=== PATIENT | female | born 1975 | race Hispanic/Latino ===

== ENCOUNTER 2018-01-30 07:35 | Day surgery (SDC) | payer OTHER ==
[2018-01-30] MEDS ORDERED: ECOTRIN PO ONE (08:10)
[2018-01-30] MEDS ORDERED: NACL 0.9% 500 ML 500 ML ONE (08:11)
[2018-01-30 08:36] LABS: Basophils # (Auto) 0.1 K/mm3 (0.0-0.1); Basophils % (Auto) 1.1 % (0.0-1.8); Eosinophils # (Auto) 0.3 K/mm3 (0.0-0.4); Eosinophils % (Auto) 3.3 % (0.0-4.3); Hematocrit 35.2 % (30.3-42.9); Hemoglobin 11.9 gm/dl (10.1-14.3); Mean Corpuscular HGB Conc 34 % (30-34); Mean Corpuscular Hemoglobin 30 pg (28-32); Mean Corpuscular Volume 88 fl (79-97); Monocytes # (Auto) 0.4 K/mm3 (0.0-0.8); Monocytes % (Auto) 5.7 % (0.0-7.3); Platelet Count 201 K/mm3 (140-440); Red Cell Distribution Width 14.5 % (13.2-15.2)
[2018-01-30 08:47] LABS: INR 0.91 (0.87-1.13)
[2018-01-30] MEDS ORDERED: NACL 0.9% 500 ML 500 ML IV SCH (09:00)
[2018-01-30 09:10] LABS: BUN/Creatinine Ratio 27; Blood Urea Nitrogen 19 mg/dL (7-17); Calcium 8.8 mg/dL (8.4-10.2); Hemolysis Index 24
[2018-01-30] MEDS ORDERED: ECOTRIN PO NR (09:30)
[2018-01-30] MEDS ORDERED: HEPARIN/NS 5000 UNIT/500ML(CATH LAB) 1,000 ML IR ONE (11:07)
[2018-01-30] MEDS ORDERED: NITROGLYCERIN SYRINGE 0 ML ONE (11:08)
[2018-01-30] MEDS ORDERED: CALAN ONE (11:08)
[2018-01-30] MEDS ORDERED: HEPARIN 10,000 UNITS/10 ML ONE (11:08)
[2018-01-30] MEDS ORDERED: XYLOCAINE 2% INFILTRATI ONE (11:08)
[2018-01-30] MEDS: VERSED ONE ×2 (11:33→11:41)
[2018-01-30] MEDS: SUBLIMAZE ONE ×2 (11:33→11:46)
--- NOTE | 2018-01-30 12:56 | Cardiac Catherization Report ---
INDICATION FOR PROCEDURE: The patient is a 42-year-old white female, patient of Dr. Handy. She is having atypical chest pains of many months duration, underwent stress EKG performed on 12/22/2017, exercised for 9 minutes and 10 seconds. No significant ischemia noted. Echocardiogram was performed on 12/22/2017, which showed normal ejection fraction. The patient continues to have atypical chest pains at rest. She has atypical chest pain with strong family history. Hence, she was recommended cardiac catheterization. The patient is willing to proceed with cardiac catheterization and the patient consented for the procedure. DESCRIPTION OF PROCEDURE: The patient was brought to the catheterization laboratory in a fasting condition. The right wrist area and forearm thoroughly cleansed with Betadine solution. The patient was sedated with IV Versed and fentanyl. Local anesthesia was given in the right wrist and right radial artery puncture was made using 21-gauge arterial puncture needle. Subsequently, 5-Bah[place]i sheath was introduced. A 5-[place]i multipurpose catheter was used to obtain the angiograms of the left coronary artery, right coronary artery and left ventriculogram done in MURO projection using hand injection. At the end of the procedure, catheter and sheath were removed. Good hemostasis was achieved with pressure bandage. Following findings were noted and also to be noted the patient was evaluated for appropriateness for moderate sedation prior to the procedure. When she was felt appropriate, the patient was sedated with IV Versed and fentanyl starting at 10:32 a.m. and ended at 11:46. The patient was continuously monitored with EKG, hemodynamic monitoring and pulse oximetry. At the end of the procedure, catheter and sheath were removed. Good hemostasis was achieved with pressure bandage. Following findings noted. HEMODYNAMICS: Opening aortic pressure 118/66, left ventricular pressure 118/19, no gradient across the aortic valve. Estimated ejection fraction 55%. Left ventriculogram done in MURO projection shows normal sized left ventricle with normal contractility. End-diastolic and end-systolic volumes are normal. Mitral regurgitation could not be evaluated because of limited amount of dye. Right coronary artery is a codominant artery, arises normally from right coronary cusp. Angiographically smooth and normal. Left coronary artery arises normally from the left coronary cusp. Left main is short, normal. LAD and large ramus branch, and circumflex artery and branch are angiographically smooth and normal. This is a codominant system. FINAL IMPRESSION: 1. Normal sized left ventricle with normal contractility. End-diastolic pressure of 19. 2. Angiographically smooth and normal coronary anatomy. At this time, etiology of chest pain is not clear. Will continue risk factor modification. The patient was explained of the findings and she understands. She will be monitored in the outpatient area. No untoward complications were noted. Right radial artery hemostasis was achieved with a radial band. JOB# [id number] OG/NTS
--- NOTE | 2018-01-30 13:06 | Short Stay Summary ---
Short Stay Documentation Date of service: 01/30/18 - History H&P: obtained from office - Allergies and Medications Current Medications: Allergies codeine Adverse Reaction (Unverified 01/30/18 07:35) Nausea Home Medications Medication Instructions Recorded Confirmed Last Taken Type Aspirin [Aspirin TAB] 325 mg PO QDAY 01/30/18 01/30/18 01/30/18 08:18 History 325 mg Cyanocobalamin (Vitamin B-12) 2,500 mcg PO DAILY 01/30/18 01/30/18 01/29/18 History [Vitamin B12] 1 tab FLUoxetine HCL [Fluoxetine HCl] 40 mg PO DAILY 01/30/18 01/30/18 01/29/18 History 40 mg Loratadine [Claritin] 10 mg PO DAILY 01/30/18 01/30/18 01/30/18 History 10 mg Omeprazole 40 mg PO QDAY 01/30/18 01/30/18 01/29/18 History 40 mg Progesterone, Micronized 100 mg PO DAILY 01/30/18 01/30/18 01/29/18 History [Progesterone] 100 mg Active Medications Sodium Chloride (Nacl 0.9% 500 Ml) 500 mls @ 50 mls/hr IV DIRECT ZOILA Stop: 01/30/18 18:59 Last Admin: 01/30/18 09:21 Dose: 50 mls/hr - Brief post op/procedure progress note Date of procedure: 01/30/18 Pre-op diagnosis: atypical chest pain Post-op diagnosis: same Procedure: C - see cath report Anesthesia: local Estimated blood loss: none Condition: stable - Disposition Condition at discharge: Stable Disposition: [id number] TO HOME OR SELFCARE - Discharge Diagnoses (1) Atypical chest pain Status: Chronic (2) Normal coronary arteries Status: Chronic Short Stay Discharge Plan Activity: advance as tolerated Diet: regular Wound: open to air, keep clean and dry, per your surgeon's advice Follow up with: SOHA SALES MD [Primary Care Provider] - 7 Days
[2018-01-30 16:43] VITALS: BP 134/64
== END 2018-01-30 07:36 | disposition home or self-care (01) ==
LOC: CATHLABREC 07:35
PROVIDERS: ATTEND Internal Medicine
DX: R07.89 Other chest pain (principal); H40.9 Unspecified glaucoma; Z82.49 Family history of ischemic heart disease and other diseases of the circulatory system; Z79.82 Long term (current) use of aspirin; Z79.899 Other long term (current) drug therapy; Z88.5 Allergy status to narcotic agent
CPT/HCPCS: 36415; 80048; 85025; 85610; 85730; 93005; 93010; 93458; 99156; C1894; J1644; J2250; J3010; J7040; Q9967